=== PATIENT | male | born 1975 | race Caucasian/White ===

== ENCOUNTER 2018-10-25 15:48 | Emergency (ER) | payer SELFPAY ==
[~2018-10-25] VITALS: Ht 160 cm; Wt 85.7 kg
[2018-10-25 15:54] VITALS: BP 127/93; Ht 160 cm; Wt 85.7 kg
== END 2018-10-25 17:34 | disposition left against medical advice (07) ==
LOC: ED 15:48
DX: M17.11 Unilateral primary osteoarthritis, right knee (principal); Z87.39 Personal history of other diseases of the musculoskeletal system and connective tissue
CPT/HCPCS: J1885